=== PATIENT | male | born 1955 | race Caucasian/White ===

== ENCOUNTER 2019-01-24 04:03 | Emergency (ER) | payer SELFPAY ==
--- NOTE | 2019-01-24 04:11 | ER Report ---
History and Physical Time Seen By MD: 04:07 (DANIELLA MULTANI MD) Time Seen By MD: 06:40 (ALHAJI SEYMOUR DO) HPI/ROS CHIEF COMPLAINT: Chest pain HISTORY OF PRESENT ILLNESS: This is a 63-year-old male. He awoke tonight with chest pain, pressure-like pain on his chest that radiated to the left arm. He has had a history of heart attack with stents in the past and while this pain was not as severe as the past it was very similar. He felt short of breath as well and is sweaty and nauseated. His last heart attack was several years ago and resulted and 3 stents. EMS gave a spray of nitroglycerin and a full dose of aspirin and the pain did seem to subside a little bit. The chest pain does increase with exertion. (DANIELLA MULTANI MD) HPI/ROS Please see Dr. Multani note (ALHAJI SEYMOUR DO) Allergies: Coded Allergies: No Known Drug Allergies (Unverified , 01/24/19) Home Meds Reported Medications Aspirin (ASPIRIN EC) 81 Mg Tablet.dr, 81 MG PO QDAY, TAB 01/24/19 Atorvastatin Calcium (LIPITOR) 40 Mg Tablet, 2 TAB PO QPM, TAB 01/24/19 Carvedilol (CARVEDILOL) 12.5 Mg Tablet, 12.5 MG PO BID, #10 TAB 01/24/19 Lisinopril (LISINOPRIL) 40 Mg Tablet, 40 MG PO QAM, TAB 01/24/19 Reviewed Nurses Notes: Yes (DANIELLA MULTANI MD) Constitutional Vital Sign - Last 24 Hours 01/24/19 01/24/19 01/24/19 01/24/19 04:05 04:11 04:13 04:13 Temp 98.1 Pulse 83 58 Resp 24 17 B/P (MAP) 97/81 92/61 (71) Pulse Ox 92 91 O2 Delivery Nasal Cannula O2 Flow Rate 2.0 01/24/19 01/24/19 01/24/19 01/24/19 04:23 04:30 04:33 04:43 Pulse 68 76 73 Resp 17 16 15 B/P (MAP) 77/58 (64) Pulse Ox 86 90 91 01/24/19 01/24/19 01/24/19 01/24/19 04:45 04:53 05:00 05:03 Pulse 74 68 Resp 24 16 B/P (MAP) 103/70 (81) 111/79 (90) Pulse Ox 92 93 01/24/19 01/24/19 01/24/19 01/24/19 05:13 05:15 05:23 05:30 Pulse 64 63 Resp 12 18 B/P (MAP) 106/74 (85) 122/76 (91) Pulse Ox 92 92 01/24/19 01/24/19 01/24/19 01/24/19 05:33 05:43 05:45 05:53 Pulse 61 64 63 Resp 20 18 20 B/P (MAP) 113/73 (86) Pulse Ox 92 93 92 01/24/19 01/24/19 01/24/19 01/24/19 06:00 06:05 06:15 06:25 Pulse 63 72 81 Resp 20 14 17 B/P (MAP) 112/75 (87) 118/81 (93) Pulse Ox 92 91 90 01/24/19 01/24/19 01/24/19 01/24/19 06:30 06:35 06:45 06:55 Pulse 62 64 Resp 22 18 B/P (MAP) 127/81 (96) 120/76 (91) Pulse Ox 92 92 01/24/19 01/24/19 01/24/19 01/24/19 07:00 07:05 07:15 07:30 Pulse 65 67 68 Resp 21 16 14 B/P (MAP) 115/75 (88) 120/83 (95) 132/88 (103) Pulse Ox 91 91 93 01/24/19 01/24/19 01/24/19 07:45 08:00 08:05 Pulse 65 71 Resp 18 17 B/P (MAP) 138/91 (107) 141/89 (106) Pulse Ox 91 92 (ALHAJI SEYMOUR DO) Physical Exam General Appearance: The patient is alert. No acute distress. Eyes: Pupils are equal, round. No pallor, injection or icterus. ENT: Mucous membranes are moist. Normal oral mucosa. Neck: Supple and non tender. No lymphadenopathy. Respiratory: Lungs are clear to auscultation. He does have slight hypoxia on room air with sats going down to about 86%, improved with oxygen by nasal cannula. Cardiovascular: Bradycardia with a regular rhythm. Normal capillary r efill/peripheral perfusion. No edema. Gastrointestinal: Abdomen is soft and non tender. Nondistended. Normal active bowel sounds. Neurological: Alert and oriented x3. Skin: Warm, diaphoretic. No rashes. Musculoskeletal: No pain with palpating on the back/spine or on the chest wall. DIFFERENTIAL DIAGNOSIS: After history and physical exam, differential diagnosis was considered for chest pain including but not limited to myocardial ischemia, pericarditis pulmonary embolus, pleural inflammation and pulmonary infectious causes. (DANIELLA MULTANI MD) Physical Exam Please see Dr. Multani note (ALHAJI SEYMOUR DO) Medical Decision Making Data Points Result Diagram: 01/24/19 0358 01/24/19 0358 Laboratory Hematology Test 01/24/19 03:58 01/24/19 08:33 Red Blood Count 5.17 M/uL (4.00-5.60) Mean Corpuscular Volume 88.4 fL (80.0-96.0) Mean Corpuscular Hemoglobin 29.6 pg (26.0-33.0) Mean Corpuscular Hemoglobin Concent 33.5 g/dL (32.0-36.0) Red Cell Distribution Width 14.3 % (11.5-14.5) Mean Platelet Volume 8.8 fL (7.2-11.1) Neutrophils (%) (Auto) 80.6 % (39.4-72.5) Lymphocytes (%) (Auto) 12.9 % (17.6-49.6) Monocytes (%) (Auto) 5.8 % (4.1-12.4) Eosinophils (%) (Auto) 0.3 % (0.4-6.7) Basophils (%) (Auto) 0.4 % (0.3-1.4) Nucleated RBC Relative Count (auto) 0.0 /100WBC Neutrophils # (Auto) 8.4 K/uL (2.0-7.4) Lymphocytes # (Auto) 1.3 K/uL (1.3-3.6) Monocytes # (Auto) 0.6 K/uL (0.3-1.0) Eosinophils # (Auto) 0.0 K/uL (0.0-0.5) Basophils # (Auto) 0.0 K/uL (0.0-0.1) Nucleated RBC Absolute Count (auto) 0.00 K/uL D-Dimer Quantitative (PE/DVT) < 0.27 ug/ml (0-0.50) Sodium Level 139 mmol/L (137-145) Potassium Level 4.1 mmol/L (3.5-5.0) Chloride Level 108 mmol/L (98-107) Carbon Dioxide Level 23 mmol/L (22-30) Blood Urea Nitrogen 21 mg/dl (9-21) Creatinine 1.30 mg/dl (0.66-1.25) Glomerular Filtration Rate Calc 56.1 Random Glucose 140 mg/dl (75-110) Calcium Level 10.0 mg/dl (8.4-10.2) Total Bilirubin 0.7 mg/dl (0.2-1.3) Aspartate Amino Transf (AST/SGOT) 17 U/L (0-35) Alanine Aminotransferase (ALT/SGPT) 31 U/L (0-56) Alkaline Phosphatase 86 U/L (0-126) B-Type Natriuretic Peptide 8 pg/ml (0-100) Total Protein 7.7 g/dl (6.3-8.2) Albumin 4.8 g/dl (3.5-5.0) Troponin I 0.130 ng/ml Chemistry Test 01/24/19 03:58 01/24/19 08:33 White Blood Count 10.4 k/uL (4.5-11.0) Red Blood Count 5.17 M/uL (4.00-5.60) Hemoglobin 15.3 g/dL (14.0-18.0) Hematocrit 45.8 % (42.0-52.0) Mean Corpuscular Volume 88.4 fL (80.0-96.0) Mean Corpuscular Hemoglobin 29.6 pg (26.0-33.0) Mean Corpuscular Hemoglobin Concent 33.5 g/dL (32.0-36.0) Red Cell Distribution Width 14.3 % (11.5-14.5) Platelet Count 236 K/uL (150-450) Mean Platelet Volume 8.8 fL (7.2-11.1) Neutrophils (%) (Auto) 80.6 % (39.4-72.5) Lymphocytes (%) (Auto) 12.9 % (17.6-49.6) Monocytes (%) (Auto) 5.8 % (4.1-12.4) Eosinophils (%) (Auto) 0.3 % (0.4-6.7) Basophils (%) (Auto) 0.4 % (0.3-1.4) Nucleated RBC Relative Count (auto) 0.0 /100WBC Neutrophils # (Auto) 8.4 K/uL (2.0-7.4) Lymphocytes # (Auto) 1.3 K/uL (1.3-3.6) Monocytes # (Auto) 0.6 K/uL (0.3-1.0) Eosinophils # (Auto) 0.0 K/uL (0.0-0.5) Basophils # (Auto) 0.0 K/uL (0.0-0.1) Nucleated RBC Absolute Count (auto) 0.00 K/uL D-Dimer Quantitative (PE/DVT) < 0.27 ug/ml (0-0.50) Glomerular Filtration Rate Calc 56.1 Calcium Level 10.0 mg/dl (8.4-10.2) Total Bilirubin 0.7 mg/dl (0.2-1.3) Aspartate Amino Transf (AST/SGOT) 17 U/L (0-35) Alanine Aminotransferase (ALT/SGPT) 31 U/L (0-56) Alkaline Phosphatase 86 U/L (0-126) B-Type Natriuretic Peptide 8 pg/ml (0-100) Total Protein 7.7 g/dl (6.3-8.2) Albumin 4.8 g/dl (3.5-5.0) Troponin I 0.130 ng/ml Coagulation Test 01/24/19 03:58 D-Dimer Quantitative (PE/DVT) < 0.27 ug/ml (ALHAJI SEYMOUR DO) EKG/Imaging EKG Interpretation 12 lead EKG: Rhythm: Sinus bradycardia, rate 50 [place]: Leftward axis QRS: normal ST segments: No ST elevation or depression noted, nonspecific T-wave changes (DANIELLA MULTANI MD) EKG Interpretation 12 lead EKG: Normal sinus rhythm ventricular rate 69, no ischemic changes, QTC 450 Rhythm: normal sinus rhythm [place]: normal QRS: normal ST segments: normal (ALHAJI SEYMOUR DO) ED Course/Re-evaluation Clinical Indication for ER IV: Hydration, IV Access (DANIELLA MULTANI MD) ED Course I assumed inpatient care from Dr. Multani at shift change. 2nd set of troponin 8:00. Patient was reexamined and had only mild complaints of chest pain at time of reevaluation. Initial troponin was negative, repeat troponin at 8:30 was 0.13. Repeat EKG showed no ischemic changes. I discussed the patient with Dr. Medellin who is traditional maori health practitioner propulsion generator repairer at [facility]. Dr. Medellin agreed with transfer. I discussed the patient with the hospitalist Dr. Carrillo who accepted the patient to her service at [facility]. Patient was bolused with heparin and infusion was started. I updated the patient regarding these findings. Patient was transferred to [facility] for further evaluation. Patient was stable at time of transfer. Decision to Disposition Date: Jan 24, 2019 Decision to Disposition Time: 09:31 (ALHAJI SEYMOUR DO) Depart Departure Latest Vital Signs Vital Signs Date Time Temp Pulse Resp B/P (MAP) Pulse Ox O2 Delivery O2 Flow Rate FiO2 01/24/19 08:05 141/89 (106) 01/24/19 08:00 71 17 92 01/24/19 04:13 2.0 01/24/19 04:05 98.1 Nasal Cannula (ALHAJI SEYMOUR DO) Impression: Primary Impression: Non-STEMI (non-ST elevated myocardial infarction) Condition: Improved Disposition: [facility] DANIELLA MULTANI MD Jan 24, 2019 04:11 ALHAJI SEYMOUR DO Jan 24, 2019 06:42
--- NOTE | 2019-01-24 04:17 | EKG ---
[place]AC[place] [facility] [place] NAME: COLEMAN GIVENS : [id number] MR: [id number] V: [id number] EXAM DATE: ORDERING PHYSICIAN: DANIELLA MCARTHUR TECHNOLOGIST: ALICIA Test Reason : CP Blood Pressure : / mmHG Vent. Rate : 050 BPM Atrial Rate : 050 BPM P-R Int : 140 ms QRS Dur : 096 ms QT Int : 408 ms P-R-T Axes : 039 -25 020 degrees QTc Int : 371 ms Sinus bradycardia Left axis Nonspecific ST-T findings No previous ECGs available Confirmed by DANYELLE ARMENTA ([id number] on 01/24/2019 6:13:21 AM Referred By: Confirmed By:DANYELLE ARMENTA
[2019-01-24 04:19] LABS: PLATELET COUNT, AUTOMATED 236 K/uL (150-450)
[2019-01-24] MEDS ORDERED: ONDANSETRON 4 MG/2 ML VIAL IVP ONE (04:20)
[2019-01-24] MEDS ORDERED: NS(*) 0.9% 1000 ML BAG 1,000 ML IV ONE (04:20)
[2019-01-24] MEDS ORDERED: LISI-374 PO (04:31)
[2019-01-24] MEDS ORDERED: ATOR40TA24 PO (04:31)
[2019-01-24] MEDS ORDERED: CARV12.578 PO (04:31)
[2019-01-24] MEDS ORDERED: ASPI81TA86 PO (04:31)
--- NOTE | 2019-01-24 04:54 | RADIOLOGY IMAGING REPORT ---
FACILITY: [facility] PATIENT NAME: Kwaku Forrest : 1955 MR: [id number] V: [id number] EXAM DATE: ORDERING PHYSICIAN: DANIELLA MCARTHUR TECHNOLOGIST: Location: Patient: Kwaku Forrest : 1955 Visit/Account:[id number] Date of Sevice: 01/24/2019 CHEST SINGLE AP Indication: Chest pain. History of coronary stents. Comparison: None available Findings: The lungs are clear. No pneumothorax or pleural effusion. Heart size is normal. IMPRESSION: 1. No acute cardiopulmonary process. Report Dictated By: Dayo Mccain at 01/24/2019 4:48 AM Report E-Signed By: Dayo Mccain at 01/24/2019 4:50 AM WSN:[id number]
--- NOTE | 2019-01-24 08:58 | EKG ---
FACILITY: [facility] PATIENT NAME: COLEMAN GIVENS : [id number] MR: [id number] V: [id number] EXAM DATE: ORDERING PHYSICIAN: ALHAJI SEYMOUR TECHNOLOGIST: LIANNA Pelayo Reason : CP Blood Pressure : / mmHG Vent. Rate : 069 BPM Atrial Rate : 069 BPM P-R Int : 168 ms QRS Dur : 094 ms QT Int : 420 ms P-R-T Axes : 034 -27 019 degrees QTc Int : 450 ms Normal sinus rhythm Normal ECG When compared with ECG of 24-JAN-2019 04:12, Nonspecific T wave abnormality no longer evident in Lateral leads QT has lengthened Confirmed by [place] ([id number]) on 01/24/2019 1:39:03 PM Referred By: BLUE Confirmed By:Vitor Cordero
[2019-01-24] MEDS ORDERED: [UNRECOGNIZED DRUG - OTHER] IV ONE (09:15)
[2019-01-24] MEDS ORDERED: HEPARIN (PORC) 5000 UN/ML VIAL IVP ONE (09:15)
[2019-01-24 09:45] VITALS: BP 154/117
== END 2019-01-24 10:38 | disposition short-term general hospital (02) ==
LOC: ER 04:35
DX: I21.4 Non-ST elevation (NSTEMI) myocardial infarction (principal)
CPT/HCPCS: 36415; 71045; 83880; 84484; 85025; 85379; 85730; 93005; 96361; 96365; 96375; 99285; J1644; J2405; J7030; 82040; 82247; 82310; 82374; 82435; 82565; 82947; 84075; 84132; 84155; 84295; 84450; 84460; 84520

== ENCOUNTER → 2019-01-24 | Outpatient (CLI) | payer SELFPAY ==
[~2019-01-24] MED LIST: ASPI81TA86 PO; ATOR40TA24 PO; CARV12.578 PO; LISI-374 PO
== END ==
LOC: AMB 10:26
PROVIDERS: ATTEND Nurse Practitioner
DX: I21.4 Non-ST elevation (NSTEMI) myocardial infarction (principal)
CPT/HCPCS: A0425; A0426

== ENCOUNTER → 2019-01-24 | Outpatient (CLI) | payer SELFPAY | LOC: AMB 03:41 | PROVIDERS: ATTEND Nurse Practitioner | DX: R07.9 Chest pain, unspecified (principal); R09.02 Hypoxemia; F41.9 Anxiety disorder, unspecified | CPT/HCPCS: A0425; A0427 ==